=== PATIENT | female | born 1990 | race Caucasian/White ===

== ENCOUNTER 2020-01-28 17:48 | Emergency (ER) | payer MEDICAID ==
[2020-01-28] MEDS ORDERED: MUPIROCIN 2% OINT 1 GM TOP STA (18:30)
[2020-01-28] MEDS ORDERED: ACETAMINOPHEN 325 MG TABLET PO STA (18:30)
[2020-01-28] MEDS ORDERED: IBUPROFEN 600 MG TABLET PO STA (18:30)
[2020-01-28] MEDS ORDERED: SULFAMETH/TRIMETH DS 800/160 MG TABLET PO STA (18:30)
--- NOTE | 2020-01-28 18:40 | ED Physician Documentation ---
PD HPI SKIN - Stated complaint Stated Complaint: INSECT BITE RT CALF - Chief complaint Chief Complaint: Wound - History obtained from History obtained from: Patient - History of Present Illness Timing - onset: How many days ago (few) Timing - duration: Days (few) Timing - details: Gradual onset, Still present Location: RLE (calf area) Quality / character: Painful, Discolored (red), Swelling. 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 Psych: Depression, Anxiety, Bipolar disorder, ADD/ADHD Musculoskeletal: None Other Past Medical History: dyskinesia, PCOS - Past Surgical History Past Surgical History: Yes General: Appendectomy /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: Other - Present Medications Home Medications: Ambulatory Orders Medication Instructions Recorded Confirmed Dextroamphetamine/Amphetamine 30 mg PO BID 10/24/12 10/24/12 [Adderall 20 mg Tablet] Gabapentin 600 mg PO BID 10/24/12 10/24/12 Olanzapine [Zyprexa] 10 mg PO BID 10/24/12 10/24/12 clonazePAM [Klonopin] 1 mg PO PRN 10/24/12 10/24/12 Albuterol [Ventolin Hfa] 2 puffs INH Q4H PRN #1 inhaler 01/18/13 Azithromycin [Zithromax] 250 mg PO DAILY #6 tablet 01/18/13 Chlorhexidine Gluconate [Hibiclens] 15 ml TP DAILY #236 ml 01/28/20 Mupirocin 1 applic TP TID #15 g 01/28/20 Naproxen 375 mg PO TID #30 tablet 01/28/20 Sulfamethox/Trimeth 800/160 1 each PO BID #14 tablet 01/28/20 [Bactrim Ds 800/160] - Allergies Allergies/Adverse Reactions: Allergies Allergy/AdvReac Type Severity Reaction Status Date / Time morphine Allergy Nausea Verified 01/28/20 18:07 - Living Situation Living Situation: reports: With spouse/s.o. Living Arrangement: reports: At home - Social History Does the pt smoke?: Yes Smoking Status: Current every day smoker Does the pt drink ETOH?: No Does the pt have substance abuse?: Yes Substance Use and Type: Ecstasy - Immunizations Immunizations are current?: No - POLST Patient has POLST: No PD ED PE NORMAL - Vitals Vital signs reviewed: Yes - General General: Alert and oriented X 3, No acute distress, Well developed/nourished - Derm Derm: Normal color, Warm and dry - Extremities Extremities: Other (right calf with rounded area of inflammation, redness, no fluctuance. very tender. Bedside U/S showing minimal to no fluid collection (2-3 mm size).) - Neuro Neuro: No motor deficit, No sensory deficit Results - Vitals Vitals: Vital Signs - 24 hr 01/28/20 01/28/20 18:02 18:57 Temperature 36.1 C L 36.9 C Heart Rate 159 H 84 Respiratory 22 16 Rate Blood Pressure 149/119 H 99/71 O2 Saturation 95 100 Oxygen O2 Source Room air PD MEDICAL DECISION MAKING - ED course Complexity details: considered differential (recent exstasy, accounting for heart rate. Does not appear septic. ), d/w patient Departure - Departure Disposition: 01 Home, Self Care Clinical Impression: Bacterial skin infection of leg Qualifiers: Laterality: right Qualified Code(s): L03.115 - Cellulitis of right lower limb Condition: Stable Record reviewed to determine appropriate education?: Yes Instructions: ED Staph Infec Abx Tx Only Prescriptions: Sulfamethox/Trimeth 800/160 [Bactrim Ds 800/160] 1 each PO BID #14 tablet Chlorhexidine Gluconate [Hibiclens] 15 ml TP DAILY #236 ml Mupirocin 1 applic TP TID #15 g Naproxen 375 mg PO TID #30 tablet Comments: Warm ice towels to the area to improve blood flow and help fight off the infection. This is most likely a staph infection of the skin. Bactrim antibiotic twice daily for a week. Topical mupirocin antibiotic to 3 times a day. Use chlorhexidine body wash antiseptic daily from head to toe to reduce the chance of other areas developing. Naproxen anti-inflammatory twice daily. Add Tylenol if needed for pains. I would anticipate improvement over the next several days and resolution in 5 to 6 days. Recheck if not improving in that timeframe or if worsening. Discharge Date/Time: 01/28/20 18:59
[2020-01-28 18:58] VITALS: BP 99/71
== END 2020-01-28 18:59 | disposition home or self-care (01) ==
LOC: ED 17:48
DX: L03.115 Cellulitis of right lower limb (principal); F17.200 Nicotine dependence, unspecified, uncomplicated
CPT/HCPCS: 99283; A9270

== ENCOUNTER 2023-08-09 10:21 | Emergency (ER) | payer MEDICAID, OTHER ==
[2023-08-09 10:45] VITALS: BP 132/78; O2SAT 98
--- NOTE | 2023-08-09 12:15 | ED Physician Documentation ---
PD HPI LOWER EXT INJURY - Stated complaint Stated Complaint: RT FOOT PX - Chief complaint Chief Complaint: Ext Problem - Additional information Additional information: 33-year-old female presents emergency department for concerns of right foot pain. Patient says that she has been camping with friends been very cold last couple nights and so she has had increased pain to her right foot. She reports overall that the pain is actually improved gotten better she is just having a lot of foul odor to her feet and says that she is also concerned about possible chlamydia gonorrhea exposure. She is been having foul-smelling vaginal odor and discharge she says that she has a history of chlamydia and this feels similar to last time she had chlamydia. 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 PD PAST MEDICAL HISTORY - Past Medical History Past Medical History: Yes Cardiovascular: None Respiratory: None Endocrine/Autoimmune: None GI: None LEGAL JOB TITLES: None Psych: Depression, Anxiety, Bipolar disorder, ADD/ADHD Musculoskeletal: None Other Past Medical History: chirag - Past Surgical History Past Surgical History: Yes General: Appendectomy /LEGAL JOB TITLES: Other - Present Medications Home Medications: Ambulatory Orders Medication Instructions Recorded Confirmed Dextroamphetamine/Amphetamine 30 mg PO BID 10/24/12 10/24/12 [Adderall 20 mg Tablet] Gabapentin 600 mg PO BID 10/24/12 10/24/12 OLANZapine [Zyprexa] 10 mg PO BID 10/24/12 10/24/12 clonazePAM [Klonopin] 1 mg PO PRN 10/24/12 10/24/12 Albuterol [Ventolin Hfa] 2 puffs INH Q4H PRN #1 inhaler 01/18/13 Azithromycin [Zithromax] 250 mg PO DAILY #6 tablet 01/18/13 Chlorhexidine Gluconate [Hibiclens] 15 ml TP DAILY #236 ml 01/28/20 Mupirocin 1 applic TP TID #15 g 01/28/20 Naproxen 375 mg PO TID #30 tablet 01/28/20 Sulfamethox/Trimeth 800/160 1 each PO BID #14 tablet 01/28/20 [Bactrim Ds 800/160] - Allergies Allergies/Adverse Reactions: Allergies Allergy/AdvReac Type Severity Reaction Status Date / Time morphine Allergy Nausea Verified 08/09/23 10:38 - Social History Does the pt smoke?: Yes Smoking Status: Current every day smoker Does the pt drink ETOH?: No Does the pt have substance abuse?: Yes - Immunizations Immunizations are current?: No - POLST Patient has POLST: No PD ED PE NORMAL - Vitals Vital signs reviewed: Yes - General General: Alert and oriented X 3, No acute distress, Well developed/nourished - HEENT HEENT: Atraumatic - Cardiac Cardiac: RRR - Respiratory Respiratory: No respiratory distress - Abdomen Abdomen: Normal bowel sounds, Soft, Non tender - Female Female : Pt declined - Derm Derm: Normal color, Warm and dry, No rash - Extremities Extremities: No deformity, No tenderness to palpate, Normal ROM s pain, No edema - Psych Psych: Normal mood, Normal affect Results - Vitals Vitals: Oxygen O2 Source Room air - Labs Labs: Laboratory Tests 08/09/23 13:20 Chlam trachomat DNA PCR NEGATIVE N.gonorrhoeae DNA (PCR) NEGATIVE T. vaginalis (PCR) NEGATIVE PD Medical Decision Making - ED course ED course: 33-year-old female presents the emergency department for what she originally complains of right foot pain. When I was able to interview the patient alone she said that she is actually here because she was concerned about a possible STD. She says she has a history of chlamydia and she is worried that she had a recent chlamydia exposure from her ex-boyfriend. She was offered to initiate antibiotics here now or to wait until results populated she said she wanted to take the antibiotic course here now. She was given 500 mg IM ceftriaxone and because of complaints concerns she was given a one-time dose of 2 g Flagyl and 1 g azithromycin. She is prophylactically given Zofran as this can sometimes be upsetting on the stomach. She tolerated medications well. She denies any dysuria or burning with urination make me less worried about this being a possible UTI. She was offered social work services for her fentanyl use originally she said that she would like to see social work but she said after waiting a period of time that she wanted to follow-up with [facility] social work. In regards to her foot pain it is now fully resolved I am not seeing any Raynaud's or any signs or symptoms of infection or any injury. She denies any pain at this time and was asking for socks which she was given. Departure - Departure Disposition: 01 Home, Self Care Clinical Impression: Possible exposure to STI Instructions: STDs Comments: Thank you for trusting us with your care we have given you a shot of ceftriaxone here in the emergency department and a one-time dose of azithromycin and Flagyl. Possible STI exposure. We will call you with the results in 24 to 48 hours to let you know if there is any changes that need to be made. I would follow-up with [facility] social work coordinator for further evaluation and information and to rehab facilities as well as supportive clinics to get off fentanyl. Please come back to the emergency department for having any worsening pain, fevers or chills, or any other concerning symptoms. Forms: PCP List Discharge Date/Time: 08/09/23 14:11
[2023-08-09] MEDS: metroNIDAZOLE 250 MG TABLET PO STA (14:07)
[2023-08-09] MEDS: AZITHROMYCIN 250 MG TABLET PO STA (14:07)
[2023-08-09] MEDS: ONDANSETRON ODT 4 MG TABLET TL STA (14:07)
[2023-08-09 17:42] LABS: CHLAMYDIA TRACHOMATIS DNA NEGATIVE (NEGATIVE); NEISSERIA GONORRHOEAE DNA NEGATIVE (NEGATIVE); TRICHOMONAS VAGINALIS DNA NEGATIVE (NEGATIVE)
== END 2023-08-09 14:11 | disposition home or self-care (01) ==
LOC: ED 10:21
DX: M79.671 Pain in right foot (principal); N89.8 Other specified noninflammatory disorders of vagina; Z86.19 Personal history of other infectious and parasitic diseases; F17.200 Nicotine dependence, unspecified, uncomplicated
CPT/HCPCS: 87491; 87591; 87661; 99283; A9270; Q0162

== ENCOUNTER 2023-09-18 23:25 | Emergency (ER) | payer MEDICAID ==
[2023-09-18 23:34] VITALS: BP 130/75; O2SAT 99
--- NOTE | 2023-09-19 00:21 | ED Physician Documentation ---
PD HPI URI - Stated complaint Stated Complaint: COUGH - Chief complaint Chief Complaint: General - History obtained from History obtained from: Patient - History of Present Illness Timing - onset: How many weeks ago (1) Timing duration: Weeks (1) Timing details: Gradual onset, Still present Associated symptoms: Sore throat, Productive cough Contributing factors: Sick contact Improves by: Rest, Medication Similar symptoms before: Diagnosis (pneumonia) Recently seen: Not recently seen - Additional information Additional information: 33-year-old Tony Son is developed a productive cough over the past week she has developed some shortness of breath associated with this. She has had pneumonia previously. And she has had to use inhalers previously. She does not currently have an inhaler. She is also complaining of some worms that she has found in her stool and she thinks she may have gotten these from her cat. She describes tiny flake like white worms. She also describes pruritus ani. Review of Systems Constitutional: reports: Fever, Sweats Eyes: denies: Decreased vision Ears: denies: Ear pain Nose: reports: Congestion Throat: reports: Sore throat Cardiac: denies: Chest pain / pressure, Palpitations Respiratory: reports: Dyspnea, Cough, Wheezing GI: reports: Other ("worms" in stool and itching to the anus). 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 /DRIVER: Other - Present Medications Home Medications: Ambulatory Orders Medication Instructions Recorded Confirmed Dextroamphetamine/Amphetamine 30 mg PO BID 10/24/12 10/24/12 [Adderall 20 mg Tablet] Gabapentin 600 mg PO BID 10/24/12 10/24/12 OLANZapine [Zyprexa] 10 mg PO BID 10/24/12 10/24/12 clonazePAM [Klonopin] 1 mg PO PRN 10/24/12 10/24/12 Albuterol [Ventolin Hfa] 2 puffs INH Q4H PRN #1 inhaler 01/18/13 Azithromycin [Zithromax] 250 mg PO DAILY #6 tablet 01/18/13 Chlorhexidine Gluconate [Hibiclens] 15 ml TP DAILY #236 ml 01/28/20 Mupirocin 1 applic TP TID #15 g 01/28/20 Naproxen 375 mg PO TID #30 tablet 01/28/20 Sulfamethox/Trimeth 800/160 1 each PO BID #14 tablet 01/28/20 [Bactrim Ds 800/160] Albendazole 400 mg PO ONCE #4 tablet 09/19/23 Albuterol Sulf [Ventolin Hfa 1 - 2 puffs INH Q4HR PRN #1 each 09/19/23 Inhaler] Azithromycin [Zithromax] 250 mg PO DAILY #6 tablet 09/19/23 - Allergies Allergies/Adverse Reactions: Allergies Allergy/AdvReac Type Severity Reaction Status Date / Time morphine Allergy Nausea Verified 09/18/23 23:29 - Social History Does the pt smoke?: Yes Smoking Status: Current every day smoker Does the pt drink ETOH?: No Does the pt have substance abuse?: Yes - Immunizations Immunizations are current?: No - POLST Patient has POLST: No PD ED PE NORMAL - Vitals Vital signs reviewed: Yes (normal ) - General General: Alert and oriented X 3, No acute distress, Well developed/nourished - HEENT HEENT: Atraumatic, PERRL, EOMI, Ears normal, Moist mucous membranes, Pharynx benign, Dentition benign - Neck Neck: Supple, no meningeal sign, No bony TTP - Cardiac Cardiac: RRR, No murmur - Respiratory Respiratory: No respiratory distress, Other (diminished breath sounds bilat ) - Abdomen Abdomen: Soft, Non tender - Back Back: No CVA TTP, No spinal TTP - Derm Derm: Normal color, Warm and dry, No rash - Extremities Extremities: No deformity, No edema - Neuro Neuro: Alert and oriented X 3, 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 parapertussis DNA (PCR) NOT DETECTED Nasal Coronavir 229E PCR NOT DETECTED Nasal Coronavir HKU1 PCR NOT DETECTED Nasal Coronavir NL63 PCR NOT DETECTED Nasal Coronavir OC43 PCR NOT DETECTED Nasal Enterovir/Rhinovir PCR NOT DETECTED Nasal Influenza B PCR NOT DETECTED Nasal Influenza A PCR NOT DETECTED Nasal Parainfluen 1 PCR NOT DETECTED Nasal Parainfluen 2 PCR NOT DETECTED Nasal Parainfluen 3 PCR NOT DETECTED Nasal Parainfluen 4 PCR NOT DETECTED Nasal RSV (PCR) NOT DETECTED Nasal B.pertussis DNA PCR NOT DETECTED Nasal C.pneumoniae (PCR) NOT DETECTED Ranjith Human Metapneumo PCR NOT DETECTED Nasal M.pneumoniae (PCR) NOT DETECTED Nasal SARS-CoV-2 (PCR) NOT DETECTED - Rads (name of study) chest Relevant Findings:: Prelim report reviewed (Impression: Mildly increased perihilar interstitial markings may represent mild pulmonary edema. No focal airspace consolidation.), EMP independent interpretation of test (looks like an infiltrate in the R middle lobe) PD Medical Decision Making - ED course Complexity details: reviewed old records, reviewed results, re-evaluated patient, considered differential, d/w patient ED course: 33-year-old Toyn Germain presented to the emerged part with a productive cough of 1 weeks duration and some reactive airway disease she did respond to the use of a DuoNeb treatment and dexamethasone. The x-ray of her chest demonstrated what appears to be an infiltrate in the right middle lobe. She was treated in the emergency department with 1 g of Rocephin and we will place her on some azithromycin and provide an inhaler. She also is complaining of some itching to her buttocks and the appearance of tiny worms. 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 Departure - Departure Disposition: 01 Home, Self Care Clinical Impression: Enterobiasis enterobius vermicularis Pneumonia Qualifiers: Pneumonia type: due to unspecified organism Laterality: right Lung location: middle lobe of lung Qualified Code(s): J18.9 - Pneumonia, unspecified organism Condition: Stable Instructions: ED Enterobiasis, ED Pneumonia Adult Prescriptions: Albuterol Sulf [Ventolin Hfa Inhaler] 1 - 2 puffs INH Q4HR PRN #1 each PRN Reason: Shortness Of Air/Wheezing Albendazole 400 mg PO ONCE #4 tablet Azithromycin [Zithromax] 250 mg PO DAILY #6 tablet Comments: Tony, today it looks like you have an infiltrate on your chest x-ray or a patch of pneumonia. It also looks like you have some reactive airway disease. We have given you a dose of dexamethasone and this should begin to improve your ability to breathe throughout the night. I have E scribed antibiotic and an inhaler for you to use to the [facility] in [place]. In addition By history it sounds like you have enterovirus vermicularis or pinworms. A simple treatment for this is albendazole and I have E scribed this to the [facility] in [place] as well.Our expectations for treatment with both of these conditions are slow and steady improvement over the next 1 to 5 days. Forms: PCP List Discharge Date/Time: 09/19/23 02:49
[2023-09-19] MEDS: IPRATROPIUM/ALBUTEROL 3 ML NEB INH STA (00:36)
[2023-09-19 00:42] LABS: B. PARAPERTUSSIS- RESP PCR PAN NOT DETECTED; B. PERTUSSIS- RESP PCR PANEL NOT DETECTED; C. PNEUMONIAE- RESP PCR PANEL NOT DETECTED; CORONAVIRUS 229E-RESP PCR NOT DETECTED; CORONAVIRUS HKU1-RESP PCR NOT DETECTED; CORONAVIRUS NL63-RESP PCR NOT DETECTED; CORONAVIRUS OC43-RESP PCR NOT DETECTED; HUMAN METAPNEUMOVIRUS NOT DETECTED; INFLUENZA A- RESP PCR PANEL NOT DETECTED; INFLUENZA B - RESP PCR PANEL NOT DETECTED; M. PNEUMONIAE- RESP PCR PANEL NOT DETECTED; PARAINFLUENZA VIRUS 1 NOT DETECTED; PARAINFLUENZA VIRUS 2 NOT DETECTED; PARAINFLUENZA VIRUS 3 NOT DETECTED; PARAINFLUENZA VIRUS 4 NOT DETECTED; RHINOVIRUS/ENTEROVIRUS NOT DETECTED; RSV- RESP PCR PANEL NOT DETECTED; SARS-CoV-2 -RESP PCR PANEL NOT DETECTED
[2023-09-19] MEDS: DEXAMETHASONE 10 MG/ML VIAL PO STA (00:45)
[2023-09-19] MEDS: CHERRY SYRUP 10 ML UDC PO ONE (00:45)
--- NOTE | 2023-09-19 01:54 | XRAY Report ---
PROCEDURE: Chest 1V INDICATIONS: cough soa TECHNIQUE: One view of the chest was acquired. COMPARISON: CT chest 01/18/2013. FINDINGS: Surgical changes and devices: None. Lungs and pleura: No pleural effusions or pneumothorax. Mildly perihilar interstitial markings. Foca l dense airspace consolidation Mediastinum: Mediastinal contours appear normal. Heart size is normal. Bones and chest wall: No suspicious bony lesions. Overlying soft tissues appear unremarkable. IMPRESSION: Mildly increased perihilar interstitial markings may represent mild pulmonary edema. No focal airspac e consolidation. Reviewed by: Lin Fink MD, PhD on 09/19/2023 1:53 AM PDT Approved by: Lin Fink MD, PhD on 09/19/2023 1:53 AM PDT Station ID: [id number]
[2023-09-19] MEDS: LIDOCAINE 1% 2 ML VIAL MC ONE (02:10)
[2023-09-19] MEDS: cefTRIAXone 1 GM VIAL IM STA (02:10)
== END 2023-09-19 02:49 | disposition home or self-care (01) ==
LOC: ED 23:25
DX: J18.9 Pneumonia, unspecified organism (principal); B80 Enterobiasis; F17.200 Nicotine dependence, unspecified, uncomplicated; Z11.52 Encounter for screening for COVID-19
CPT/HCPCS: 71045; 87633; 94640; 96372; 99284; A9270

== ENCOUNTER 2024-01-25 13:45 | Emergency (ER) | payer MEDICAID ==
[2024-01-25] MEDS: ACETAMINOPHEN 500 MG TABLET PO STA (14:54)
[2024-01-25 16:02] LABS: B. PARAPERTUSSIS- RESP PCR PAN NOT DETECTED; B. PERTUSSIS- RESP PCR PANEL NOT DETECTED; C. PNEUMONIAE- RESP PCR PANEL NOT DETECTED; CORONAVIRUS 229E-RESP PCR NOT DETECTED; CORONAVIRUS HKU1-RESP PCR NOT DETECTED; CORONAVIRUS NL63-RESP PCR NOT DETECTED; CORONAVIRUS OC43-RESP PCR NOT DETECTED; HUMAN METAPNEUMOVIRUS NOT DETECTED; INFLUENZA A- RESP PCR PANEL NOT DETECTED; INFLUENZA B - RESP PCR PANEL NOT DETECTED; M. PNEUMONIAE- RESP PCR PANEL NOT DETECTED; PARAINFLUENZA VIRUS 1 NOT DETECTED; PARAINFLUENZA VIRUS 2 NOT DETECTED; PARAINFLUENZA VIRUS 3 NOT DETECTED; PARAINFLUENZA VIRUS 4 NOT DETECTED; RHINOVIRUS/ENTEROVIRUS NOT DETECTED; RSV- RESP PCR PANEL NOT DETECTED; SARS-CoV-2 -RESP PCR PANEL NOT DETECTED
[2024-01-25 16:34] LABS: BILIRUBIN,URINE SMALL (NEGATIVE); GLUCOSE, URINE (UA) NEGATIVE (NEGATIVE); KETONES,URINE (UA) TRACE mg/dL (NEGATIVE); LEUKOCYTE ESTERASE, URINE NEGATIVE (NEGATIVE); NITRITE,URINE NEGATIVE (NEGATIVE); OCCULT BLOOD,URINE MODERATE (NEGATIVE); PROTEIN,URINE TRACE mg/dL (NEGATIVE); UROBILINOGEN,URINE 1 (NORMAL) E.U./dL (NORMAL)
[2024-01-25 16:42] LABS: CLARITY,URINE CLEAR (CLEAR); HCG UR QUAL NEGATIVE
[2024-01-25 16:52] LABS: BACTERIA,URINE Many /HPF (None Seen); MUCUS,URINE Few Strands; RBC,URINE 0-5 /HPF (0-5); SQUAMOUS EPITHELIAL CELL,UR MANY Squamous (<= Few); WBC,URINE 0-3 /HPF (0-5)
--- NOTE | 2024-01-25 17:13 | ED Physician Documentation ---
History of Present Illness - Stated complaint Stated Complaint: DICK,BODY ACHES, EYE IRRITATION - Chief complaint Chief Complaint: General - Additonal information Additional information: Patient is a 34-year-old female with no significant past medical history presents to the emergency department with generalized bodyaches chills fevers bilateral conjunctiva and sore throat. She notes symptoms have been going on for the past few days. Unsure of her highest temperature denies any recent sick contacts. She denies any nausea or vomiting has been eating and drinking well. She notes symptoms came on suddenly. 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: Other - Present Medications Home Medications: Ambulatory Orders Medication Instructions Recorded Confirmed Dextroamphetamine/Amphetamine 30 mg PO BID 10/24/12 10/24/12 [Adderall 20 mg Tablet] Gabapentin 600 mg PO BID 10/24/12 10/24/12 OLANZapine [Zyprexa] 10 mg PO BID 10/24/12 10/24/12 clonazePAM [Klonopin] 1 mg PO PRN 10/24/12 10/24/12 Albuterol [Ventolin Hfa] 2 puffs INH Q4H PRN #1 inhaler 01/18/13 Azithromycin [Zithromax] 250 mg PO DAILY #6 tablet 01/18/13 Chlorhexidine Gluconate [Hibiclens] 15 ml TP DAILY #236 ml 01/28/20 Mupirocin 1 applic TP TID #15 g 01/28/20 Naproxen 375 mg PO TID #30 tablet 01/28/20 Sulfamethox/Trimeth 800/160 1 each PO BID #14 tablet 01/28/20 [Bactrim Ds 800/160] Albendazole 400 mg PO ONCE #4 tablet 09/19/23 Albuterol Sulf [Ventolin Hfa 1 - 2 puffs INH Q4HR PRN #1 each 09/19/23 Inhaler] Azithromycin [Zithromax] 250 mg PO DAILY #6 tablet 09/19/23 - Allergies Allergies/Adverse Reactions: Allergies Allergy/AdvReac Type Severity Reaction Status Date / Time No Known Drug Allergies Allergy Verified 01/25/24 13:55 - Social History Does the pt smoke?: Yes Smoking Status: Current every day smoker Does the pt drink ETOH?: No Does the pt have substance abuse?: Yes - Immunizations Immunizations are current?: No - POLST Patient has POLST: No PD ED PE NORMAL - Vitals Vital signs reviewed: Yes - General General: Alert and oriented X 3 - HEENT HEENT: Atraumatic, PERRL, EOMI (Vision intact with bilateral conjunctival erythema no significant discharge or eyelid crusting. Pupils are equal round reactive to light and accommodation.) - Neck Neck: Supple, no meningeal sign - Cardiac Cardiac: RRR, No murmur, No gallop, No rub - Respiratory Respiratory: No respiratory distress, Clear bilaterally - Abdomen Abdomen: Normal bowel sounds, Non tender, Non distended - Female Female : Deferred - Rectal Rectal: Deferred - Back Back: No CVA TTP - Derm Derm: Normal color, No rash - Extremities Extremities: No deformity - Neuro Neuro: Alert and oriented X 3 - Psych Psych: Normal mood Results - Vitals Vitals: Vital Signs - 24 hr 01/25/24 13:48 Temperature 36.8 C Heart Rate 85 Respiratory 18 Rate Blood Pressure 132/86 H O2 Saturation 99 Oxygen O2 Source Room air - Labs Labs: Laboratory Tests 01/25/24 01/25/24 14:45 16:24 Urine Color DARK YELLOW Urine Clarity CLEAR Urine pH 6.0 Ur Specific [place] >=1.030 H Urine Protein TRACE Urine Glucose (UA) NEGATIVE Urine Ketones TRACE Urine Occult Blood MODERATE H Urine Nitrite NEGATIVE Urine Bilirubin SMALL H Urine Urobilinogen 1 (NORMAL) Ur Leukocyte Esterase NEGATIVE Urine RBC 0-5 Urine WBC 0-3 Ur Squamous Epith Cells MANY Squamous H Urine Bacteria Many H Urine Mucus Few Strands Ur Microscopic Review INDICATED Urine Culture Comments NOT INDICATED Urine HCG, Qual NEGATIVE Nasal Adenovirus (PCR) NOT DETECTED Nasal B. parapertussis DNA (PCR) NOT DETECTED Nasal Coronavir 229E PCR NOT DETECTED Nasal Coronavir HKU1 PCR NOT DETECTED Nasal Coronavir NL63 PCR NOT DETECTED Nasal Coronavir OC43 PCR NOT DETECTED Nasal Enterovir/Rhinovir PCR NOT DETECTED Nasal Influenza B PCR NOT DETECTED Nasal Influenza A PCR NOT DETECTED Nasal Parainfluen 1 PCR NOT DETECTED Nasal Parainfluen 2 PCR NOT DETECTED Nasal Parainfluen 3 PCR NOT DETECTED Nasal Parainfluen 4 PCR NOT DETECTED Nasal RSV (PCR) NOT DETECTED Nasal B.pertussis DNA PCR NOT DETECTED Nasal C.pneumoniae (PCR) NOT DETECTED Ranjith Human Metapneumo PCR NOT DETECTED Nasal M.pneumoniae (PCR) NOT DETECTED Nasal SARS-CoV-2 (PCR) NOT DETECTED PD Medical Decision Making - ED course Complexity details: reviewed old records, reviewed results ED course: Patient is a 34-year-old female presenting to the emergency department with generalized bodyaches fevers sore throat bilateral conjunctiva erythema and headache. Patient is also reporting chronic abdominal pain symptoms have been going on for multiple months. She has been eating and drinking well no nausea or vomiting at home. Vitals on arrival are reassuring. Physical exam shows conjunctival erythema without any visual acuity changes and pupils are equal round reactive to light and accommodation. Given viral URI symptoms patient checked with respiratory panel that returned negative. Discussed with patient with bilateral conjunctival erythema still could be secondary to viral URI symptoms. Discussed with patient she would also like test and urine test given her chronic abdominal pain. UA and test are negative. Discussed with patient given reassuring results she is safe for discharge home she can take Tylenol and ibuprofen at home. Patient understands and is agreeable with this plan. Departure - Departure Disposition: 01 Home, Self Care Clinical Impression: Viral URI, Chronic abdominal pain Condition: Good Comments: You were seen here in the emergency department your workup here showed no acute findings please take Tylenol and ibuprofen at home for your symptoms follow-up with your PCP in outpatient setting to ensure resolution of symptoms.
[2024-01-25 17:36] VITALS: BP 125/80; O2SAT 100
== END 2024-01-25 17:36 | disposition home or self-care (01) ==
LOC: ED 13:45
DX: J06.9 Acute upper respiratory infection, unspecified (principal); R10.9 Unspecified abdominal pain
CPT/HCPCS: 81001; 81025; 87633; 99282; 99283; A9270; 81003; 87086